=== PATIENT | female | born 1965 | race Caucasian/White ===

== ENCOUNTER → 2017-10-25 10:46 | Outpatient (CLI) | payer OTHER, SELFPAY ==
[2017-10-25 12:18] LABS: Anion Gap 10 (5-15); BUN 12 mg/dL (7-18); BUN/Creat Ratio 14.1 RATIO (10-20); Calcium,Total 8.7 mg/dL (8.5-10.1); Chloride 101 mmol/L (98-107); Creatinine, Serum 0.85 mg/dL (0.55-1.02); EST Glomerular Filtration Rate 75 mL/min (>60); Est Glom Filt Rate - Afr Amer 91 mL/min (>60); Glucose 88 mg/dL (74-106); Potassium 3.1 mmol/L (3.5-5.1); Sodium Level 136 mmol/L (136-145)
== END ==
PROVIDERS: Family Provider Family Medicine; PCP Family Medicine; Visit Provider Family Medicine
DX: I10 Essential (primary) hypertension (principal)
CPT/HCPCS: 36415; 80048

== ENCOUNTER → 2019-06-20 14:17 | Outpatient (CLI) | payer OTHER, SELFPAY ==
[2019-06-20 15:42] LABS: Absolute Lymphocyte Count 1.81 X10^3/uL (0.83-4.51); Absolute Neutrophil Count 5.4 X10^3/uL (2.0-7.7); Basophil# 0.02 X10^3/uL; Basophil% 0.2 % (0-1); Eosinophil# 0.11 X10^3/uL; Eosinophils% 1.4 % (0-5); Hemoglobin 13.2 g/dL (12.0-15.0); Lymphocyte # 1.81 X10^3/ul (4.0); Lymphocyte % 22.5 % (19-41); Mean Corpuscular Hgb 30.9 pg (27.0-32.0); Mean Corpuscular Volume 93.7 fL (81-99); Mean Platelet Vol. 10.7 fl (6.2-12.0); Monocyte# 0.62 X10^3/uL; Monocyte% 7.7 % (0-10); NRBC Flagged by Analyzer 0 % (0-5); Neutrophil # 5.44 X10^3/uL (2.7-7.7); Neutrophil % 67.8 % (47-70); Platelet Count 328 K/mm3 (150-450); RBC Distribution Width CV 12.2 % (11.6-14.6); RBC Distribution Width SD 42.2 fl (35.1-43.9); Red Blood Count 4.27 M/mm3 (4.2-5.4)
[2019-06-20 16:07] LABS: ALB/GLOB Ratio 0.8 RATIO (0.9-2.4); AST(SGOT) 19 U/L (15-37); Alanine Aminotransfer ALT/SGPT 26 U/L (13-56); Albumin, Serum 3.7 g/dL (3.2-5.0); Alkaline Phosphatase 95 U/L (45-117); Anion Gap 8 (5-15); BUN 9 mg/dL (7-18); BUN/Creat Ratio 9.2 RATIO (10-20); Calcium,Total 8.8 mg/dL (8.5-10.1); Chloride 103 mmol/L (98-107); Creatinine, Serum 0.98 mg/dL (0.55-1.02); EST Glomerular Filtration Rate 63 mL/min (>60); Est Glom Filt Rate - Afr Amer 76 mL/min (>60); Globulin 4.9 g/dL (2.2-4.2); Glucose 96 mg/dL (74-106); Lipase 120 U/L (73-393); Potassium 3.7 mmol/L (3.5-5.1); Protein, Total 8.6 g/dL (6.4-8.2); Sodium Level 138 mmol/L (136-145); Thyroid Stim Hormone (TSH) 2.83 uIU/mL (0.358-3.74)
--- NOTE | 2019-06-20 16:34 | US_ITS ---
STUDY: ABDOMINAL ULTRASOUND - RIGHT UPPER QUADRANT REASON FOR VISIT: Female, 54 years old. Pain TECHNIQUE: Ultrasound evaluation of the right upper quadrant was performed with real-time and static azar-scale imaging. TECHNICAL QUALITY: Adequate. COMPARISON: None. FINDINGS: Liver: The liver measures 18 cm. There is normal echogenicity of the liver. The bile ducts are within normal limits. There is hepatic color flow. The direction of portal flow is hepatopetal. There is no demonstrated mass lesion. Gallbladder: Normal distended gallbladder. The gallbladder wall measures 4 mm. There is a negative sonographic Hooker's sign. There is no pericholecystic fluid. Gallstones and sludge are present. Common Bile Duct (C.B.D.): The common bile duct measures 4 mm. Pancreas: Normal size of the head, body and tail of the pancreas. There is normal echogenicity of the pancreas. There is no demonstrated pancreatic mass or cyst. Right Kidney: Normal size of the right kidney. The right kidney measures 10 cm. Normal renal cortex. There is no demonstrated renal mass or cyst. There is no right hydronephrosis. US/Abdomen Limited IMPRESSION: No acute abdominal pathology identified. Hepatomegaly. Gallstones and sludge. Electronically Signed: Ariel Hammond, at 17:19 EDT Tel , Service support ,
== END ==
PROVIDERS: Family Provider Family Medicine; PCP Family Medicine; Referring Provider Family Medicine; Visit Provider Family Medicine
DX: R10.11 Right upper quadrant pain (principal)
CPT/HCPCS: 36415; 76705; 80053; 83690; 84443; 85025; 86140

== ENCOUNTER 2019-07-04 08:51 | Day surgery (SDC) | payer OTHER, SELFPAY ==
[2019-06-25 15:23] VITALS: BMI 39.1
--- NOTE | 2019-06-26 12:33 | HP_ITS ---
Intake Vital Signs 06/25/19 Height 5 ft 1 in 06/25/19 Weight: 207 lb 06/25/19 Body Mass Index (BMI) 39.1 06/25/19 Blood Pressure 147/82 H 06/25/19 Blood Pressure Location Rt brachial 06/25/19 Blood Pressure Position Sitting 06/25/19 Respiratory Rate 16 06/25/19 Pulse Rate 95 06/25/19 Pulse Source Monitor 06/25/19 Temperature 98.5 F 06/25/19 Temperature Source Oral 06/25/19 Pulse Ox 95 06/25/19 Oxygen Delivery Method room air Intake Visit Reasons: CHOLELITHIASIS & SLUDGE, U/S @ [facility] 06/20/2019 High Tension Tester Required: No Is patient in pain?: Yes (RUQ abdomen) Pain scale (1-10): 5 Allergies No Known Allergies Allergy (Verified 06/25/19 15:27) Medications lisinopril 20 mg-hydrochlorothiazide 12.5 mg tablet 1 tab PO DAILY #90 tab 06/25/19 [History Confirmed 06/25/19] PFSH Medical History (Updated 06/25/19 @ 15:19 by Rosanne Montague) Acid reflux (Acute) Diarrhea (Acute) Nausea (Acute) Hypertension (Chronic) Abdominal pain, RUQ (Acute) Fatigue (Acute) Surgical History (Updated 06/25/19 @ 15:19 by Rosanne Montague) Hx of tonsillectomy (Acute) History of (Acute) Hx of dilation and curettage (Acute) Family History (Updated 06/25/19 @ 15:23 by Rosanne Montague) Father Heart disease Hypertension Cancer Skin Mother Cancer Skin Cancer Sister Hypertension Brother Hypertension Social History (Updated 06/26/19 @ 12:33 by Meg Badillo MD) Smoking Status: Never smoker second hand exposure: No alcohol intake: current alcohol intake frequency: a few times a month substance use type: does not use caffeine: Yes what type of physical activity do you participate in: none frequency: does not exercise HPI HPI HPI: ISADORA BAHENA, is a 54 F who presents to the office today for HPI HPI Surgical H&P: Yes HPI: ISADORA BAHENA, is a 54 F who presents to the office today for cholelithiasis. Patient states for the past few months she has had pain after eating but it has gradually gotten worse. Patient states that currently she is avoiding any fatty or greasy foods and the pain is much better. Before that patient states she could have right upper quadrant pain, went towards the back and rated as 7?8/10. Patient did have an ultrasound which showed gallstones, no pericholecystic fluid, normal common bile duct, gallbladder wall measured about 3 mm on my read, white blood cell count and LFTs were within normal limits. Patient states she occasionally had some nausea with it occasionally some diarrhea as well. Patient has never had a colonoscopy. Denies any family history of colon cancer. ROS General General: Yes weight change and fatigue Gastro Gastrointestinal: Yes abdominal pain, No nausea or vomiting, No diarrhea, No constipation, No blood in stool, No acid reflux, No hemorrhoids, No ulcers, No gallbladder problem, No black,tarry stools Exam Const General: cooperative, comfortable, no acute distress Resp Effort & Inspection: normal respiratory effort Cardio Rate: regular rate GI Inspection: non-distended Palpation: soft, no guarding, nontender Assessment & Plan Problems 1. Cholelithiasis K80.20 Plan Reviewed the anatomy with the patient and discussed the procedure: laparoscopic cholecystectomy with possible cholangiograms, possible open. Review risks including but not limited to bleeding, infection, hernia, bile leak, retained gallstones requiring another procedure ERCP- Endoscopic Retrograde Cholangiopancreatography, injury to another organ (bile ducts, common bile duct, small bowel, etc.) may require transfer to tertiary care facility and conversion to an open procedure. All questions were answered. Meg Badillo M.D. Pager: [phone] [facility] [address] [place] [address], [address] [place] [address] Office: [phone] Plan Detail Follow Up will schedule lap mare Coding Level of Care Code Off vis,new,level 3 Diagnoses Cholelithiasis K80.20 06/26/19 1233 <Electronically signed by Meg Knight am, MD> Date _ Meg Badillo MD I have examined the patient the following changes are noted: Patient states she is still been doing pretty well she has occasional discomfort which she rates still a 4?5/10. She has been avoiding fatty or greasy foods. Patient and her no further questions about the procedure.
[2019-07-04] VITALS (8 sets, daily range): BP systolic 148–181; BP diastolic 64–107; PULSE 16–98; RESP 16; TEMP 36.1–36.8; O2SAT 98–100; BMI 38.3
--- NOTE | 2019-07-04 09:12 | EKG12_ITS ---
Test Reason : PRE OP Blood Pressure : / mmHG Vent. Rate : 084 BPM Atrial Rate : 084 BPM P-R Int : 154 ms QRS Dur : 080 ms QT Int : 366 ms P-R-T Axes : 071 016 060 degrees QTc Int : 432 ms Normal sinus rhythm Low voltage QRS Borderline ECG No previous ECGs available Confirmed by HEATHER CHIRINOS, GOMEZ ([id number]), publication editor BRIDGER ANTONIO ([id number]) on 07/10/2019 1:47:37 PM Referred By: Meg Badillo Confirmed By:KHOI ROMERO MD
[2019-07-04] MEDS: Lactated Ringers 1,000 ML 100 ML IV (09:59)
--- NOTE | 2019-07-04 10:30 | GALL_PTH ---
PATIENT: ISADORA BAHENA LOC: [facility] U#:[id number] AGE/SX: 54/F ROOM: RE07/04/[address]: Dr. Meg Badillo MD : [id number] BED: DIS: 07/04/2019 SPEC #: [id number] RECD: 07/04/19 15:22 STATUS: TIFFANY RETiffanie #: [id number] CHAS: 07/04/19 10:[address]: Meg Badillo DEPT: SURGICAL PATHOLOGY RECD BY: Paolo Douglass ENTERED: 07/05/19 09:58 SP TYPE: PHUONG MARTINEZ DR: Dr. Lou Puente MD Tissues: Gallbladder, NOS Procedures: Surgery Specimen Level III HEADER OPERATION: Laparoscopic, cholecystectomy with IOC PRE-OP DIAGNOSIS: Cholelithiasis and sludge TISSUE SUBMITTED: Gallbladder MICROSCOPIC DIAGNOSIS Gallbladder, cholecystectomy: Chronic cholecystitis and cholelithiasis. AM:silver 07/06/19 MICROSCOPIC DESCRIPTION Slides are reviewed. GROSS DESCRIPTION Received is one container labeled with the patient's name and designated gallbladder. The specimen consists of a previously opened gallbladder measuring 12 cm in length and up to 5 cm in diameter. The external surface is pink-reyes, smooth and glistening for the most part. Focally it is granular, hemorrhagic and contains cautery artifact. Present in the container is a significant amount of bile. Present in the container are five multifaceted, brownish-black stones measuring in aggregate 5.5 x 2.5 x 2.5 cm and 1 to 2.5 cm in greatest dimension. The mucosa is bile-stained and without any mass lesions. The gallbladder wall measures up to 0.3 cm in thickness. Equipment Manager sections from the gallbladder and the cystic duct are submitted in one cassette. / SHERICE:silver 07/05/19 TC:3 CPT: 64599
--- NOTE | 2019-07-04 11:01 | RAD_ITS ---
STUDY: INTRAOPERATIVE CHOLANGIOGRAM. REASON FOR EXAM: Female, 54 years old. Laparoscopic cholecystectomy. FLUOROSCOPY TIME (if supplied): ( 26.7 seconds ) minutes/seconds. 5 intraoperative images were obtained. TECHNIQUE: An intraoperative cholangiogram was performed by the surgeon. Imaging was submitted. COMPARISON: None. FINDINGS: The visualized intrahepatic biliary ducts are unremarkable. The common bile duct is unremarkable. No intraluminal filling defect is seen. There is free flow of contrast into the duodenum. RAD/Cholangiogram/ O R,Initial IMPRESSION: Unremarkable intraoperative cholangiogram. Electronically Signed: Ronaldo Lewis, at 10:09 EST , Service support ,
--- NOTE | 2019-07-04 12:22 | PCM.OPRPT ---
Report of Operation Date of Procedure: 07/04/19 Pre-Operative Diagnosis: Cholelithiasis, cholecystitis Post-Operative Diagnosis: Same Surgery/Procedure Performed:: Laparoscopic cholecystectomy with cholangiograms home improvement advisor: Kelly Huynh Type of Anesthesia:: General/Supplemental Anesthesiologist: Kevin Boland Special Medications: Cefotan 2 g IV x1 Specimen's removed: Gallbladder and stones Estimated Blood Loss (mL): 20 cc Fluids Replaced: 1200 cc Description of Procedure: Indications this is a 54 year-old female who developed abdominal pain/nausea/vomiting and on workup was found to have cholelithiasis, with a normal common bile duct and normal LFTs. Laparoscopic cholecystectomy was elected. Description procedure: The patient was placed on operating table in supine position. General Anesthesia was induced. A timeout was completed verifying correct patient, procedure, site, position and special equipment prior to beginning procedure. The abdomen was prepped and draped in usual sterile fashion. An incision was made in the natural skin line above the umbilicus. The fascia was elevated and incised. The peritoneum was elevated and incised. Entry into the peritoneum was confirmed visually and no bowel was noted in the vicinity of the incision. Louis trocar was placed. The abdomen was insufflated with carbon dioxide to a pressure of 12-15 mmHg. Patient tolerated insufflation well. The laparoscope was then inserted and abdomen inspected. No injuries from initial trocar placement were noted. Additional trochars were then inserted in the following locations 5 mm trocar in the epigastrium and 2 more 5 mm trochars along the right costal margin. The abdomen was inspected no abnormalities were found. The table is placed in reverse Trendelenburg position with the right side up. The adhesions between the gallbladder and omentum were lysed sharply. The gallbladder was distended. An aspiration needle was used. The dome of the gallbladder was grasped with atraumatic grasper passed through the lateral port and retracted over the dome of the liver. Infundibulum was then grasped with atraumatic grasper through the midclavicular port and retracted to the right lower quadrant. This maneuver exposed Calot's triangle. The peritoneum overlying the gallbladder infundibulum was then incised and cystic duct and artery identified and circumferentially dissected. Corona catheter was used for cholangiograms. The cholangiogram showed good filling of the common bile duct into the duodenum with no filling defects, good filling of the right and left bile ducts as well. The cystic duct and artery were then doubly clipped and divided close to the gallbladder. The gallbladder then dissected from the gallbladder fossa by electrocautery. Hemostasis was checked and the argon beam was used on the gallbladder fossa. The gallbladder and contained stones were removed using the endoscopic retrieval bag through the umbilical port which need to be enlarged due to the size of the stones. The gallbladder is passed off table as specimen. The gallbladder fossa was copiously irrigated with saline and hemostasis obtained. There is no evidence of bleeding from the gallbladder fossa or cystic artery leakage of bile from the cystic duct stump. Secondary trochars removed under direct vision. No bleeding was noted the trocar sites. The laparoscope was withdrawn and umbilical trocar removed. The abdomen was allowed to collapse. The fascia of the 12 mm trocar was closed with 2 [id number] 0 Vicryl suture. The skin was closed with sutures of 4-0 Monocryl and Steri-Strips. The orogastric tube was removed and the patient was extubated. The patient tolerated procedure well and was taken to the postanesthesia care unit in stable condition. - Complications None
--- NOTE | 2019-07-04 12:25 | PCM.DC.GB ---
Discharge Diet: Light diet - advance as tolerated Discharge Activity: May not drive while taking narcotic pain medications. May shower in (days): 1 Lifting Restrictions: No lifting greater than 20 pounds x 3 weeks, no strenuous exercise for 5 wk Call your doctor if your incision/area has: Continuous Slow Oozing, Sudden Increased Bleeding, Increased Pain/ Swelling, Increased Redness, Foul Smelling Discharge, Swelling at the incision site Call your doctor if you observe: Fever of 101 or Higher Remove Dressing in (days):: 1 - Okay to remove op sites tomorrow, keep Steri-Strips on until they follow-up, if they do not follow-up in 10 days okay to remove Additional Instructions: Okay to take ibuprofen 400-600 mg PO q6hr PRN along with the Percocet. Avoid Tylenol since there is already Tylenol in the Percocet. Take all pain meds with food. Percocet can cause constipation recommend taking daily stool softener (i.e. Colace/docusate) while taking the pain meds. Recommend starting some MiraLAX in 1 to 2 days if no bowel movement. If still no bowel movement following day recommend taking magnesium citrate half the bottle and waiting 4-6 hours if still no results take the other half the bottle. Allergies/Adverse Reactions: Allergies No Known Allergies Allergy (Verified 07/04/19 09:36) Medications to take at Discharge lisinopril 20 mg-hydrochlorothiazide 12.5 mg tablet 1 tab PO DAILY #90 tab 06/25/19 Oxycodone HCl/Acetaminophen [Percocet 5/325] 1 - 2 tab PO Q6H PRN PRN 4 Days #20 tab 07/04/19 The following prescriptions were given: Oxycodone HCl/Acetaminophen [Percocet 5/325] 1 - 2 tab PO Q6H PRN PRN 4 Days #20 tab PRN Reason: Pain Transmission Status: Received by Dotted Block #30 Primary Care Physician: Lou Puente MD [Primary Care Provider] - Test Results: Test results from this visit will be discussed in further detail at your follow-up appointment, if applicable. Please Follow Up With: Meg Badillo MD - After 5 PM and on the weekends call [phone] When: Call the office for follow-up appointment in 2 weeks. Proposed Discharge Date: 07/04/19
[2019-07-04] MEDS: Bupivacaine Mpf 0.5% 30 ML VIAL (12:27)
== END 2019-07-04 16:31 | disposition home or self-care (01) ==
LOC: SDC 08:53 → AC 08:53
PROVIDERS: Family Provider Family Medicine; PCP Family Medicine; Referring Provider Surgery; Visit Provider Surgery
PROC: (CPT 47610; principal; 2019-07-04 10:10)
DX: K80.10 Calculus of gallbladder with chronic cholecystitis without obstruction (principal); I10 Essential (primary) hypertension; K21.9 Gastro-esophageal reflux disease without esophagitis; Z78.0 Asymptomatic menopausal state; Z79.899 Other long term (current) drug therapy
CPT/HCPCS: 00790; 47563; 74300; 76000; 88304; 93005; J7120; J2405

== ENCOUNTER → 2020-04-07 | Outpatient (CLI) | payer BC, SELFPAY ==
[2019-07-04 09:50] VITALS: BMI 38.3
[2020-04-07 15:59] LABS: Anion Gap 10 (5-15); BUN 16 mg/dL (7-18); BUN/Creat Ratio 16.6 RATIO (10-20); Calcium,Total 8.7 mg/dL (8.5-10.1); Chloride 103 mmol/L (98-107); Cholesterol 189 mg/dL (200); Creatinine, Serum 0.96 mg/dL (0.55-1.02); EST Glomerular Filtration Rate 64 mL/min (>60); Est Glom Filt Rate - Afr Amer 78 mL/min (>60); Glucose 86 mg/dL (74-106); High Density Lipoprotein 50 mg/dL; Potassium 3.7 mmol/L (3.5-5.1); Sodium Level 139 mmol/L (136-145); Triglycerides 148 mg/dL; Very Low Density Lipoprotein 30 mg/dL (5-40)
== END | disposition home or self-care (01) ==
LOC: MFPLAB 11:33
PROVIDERS: PCP Family Medicine; Referring Provider Family Medicine; Visit Provider Family Medicine
DX: I10 Essential (primary) hypertension (principal)
CPT/HCPCS: 36415; 80048; 80061

== ENCOUNTER → 2021-06-09 10:24 | Outpatient (CLI) | payer BC, SELFPAY ==
[2021-06-09 13:34] LABS: Anion Gap 8 (5-15); BUN 17 mg/dL (7-18); BUN/Creat Ratio 16.3 RATIO (10-20); Calcium,Total 8.8 mg/dL (8.5-10.1); Chloride 103 mmol/L (98-107); Cholesterol 174 mg/dL (200); Creatinine, Serum 1.04 mg/dL (0.55-1.02); EST Glomerular Filtration Rate 59 mL/min (>60); Est Glom Filt Rate - Afr Amer 71 mL/min (>60); Glucose 99 mg/dL (74-106); High Density Lipoprotein 49 mg/dL; Potassium 3.7 mmol/L (3.5-5.1); Sodium Level 138 mmol/L (136-145); Triglycerides 196 mg/dL; Very Low Density Lipoprotein 39 mg/dL (5-40)
== END ==
PROVIDERS: PCP Family Medicine; Referring Provider Family Medicine; Visit Provider Family Medicine
DX: Z00.00 Encounter for general adult medical examination without abnormal findings (principal); I10 Essential (primary) hypertension
CPT/HCPCS: 36415; 80048; 80061

== ENCOUNTER → 2023-01-26 | Outpatient (CLI) | payer BC, SELFPAY ==
--- NOTE | 2023-01-26 07:59 | BI_ITS ---
MAMMOGRAPHY - BILATERAL SCREENING REASON FOR EXAM: Female, 57 years old. Routine annual screening examination. PERTINENT HISTORY: Non-contributory. TECHNIQUE: Digital bilateral breast sarjbit (3D mammographic acquisition) in the CC and MLO projections. 2-D mediolateral oblique (MLO) and craniocaudad (CC) views of both breasts were obtained. CAD: Full Field Digital Mammography with Computer Added Detection was performed. COMPARISON: Comparison is made with prior study dated May 06, 2015. FINDINGS: Breast Composition: The breasts are heterogeneously dense, which may obscure small masses. There are no dominant masses or suspicious calcifications. No other significant abnormalities are identified. There has been no significant change since the prior study. BI/SCRN MAMM (CAD)W/SARBJIT BILAT IMPRESSION: Stable bilateral screening mammogram. Yearly follow-up mammogram recommended. (A) ASSESSMENT CATEGORY: BIRADS Category 1: Negative. A letter regarding these results will be sent to the patient by the facility within 30 days. Approximately 10% of breast cancers are not detected by mammography. A normal mammogram should not delay biopsy of a clinically suspicious abnormality. [id number] Electronically Signed: Ronaldo Lewis MD at 9:35 EDT ,
== END | disposition home or self-care (01) ==
LOC: OPBI 07:57
PROVIDERS: PCP Family Medicine; Referring Provider Family Medicine; Visit Provider Family Medicine
DX: Z12.31 Encounter for screening mammogram for malignant neoplasm of breast (principal)
CPT/HCPCS: 77063; 77067

== ENCOUNTER → 2025-05-14 | Outpatient (CLI) | payer OTHER, SELFPAY ==
--- NOTE | 2025-05-14 15:18 | BI_ITS ---
EXAM: SCRN MAMM (CAD)W/SARBJIT BILAT DATE: 05/14/2025 CLINICAL HISTORY: F, Age 60 y/o , SCREENING No family history. TECHNIQUE: Procedure Code: [id number] Modality: MG Procedure: SCRN MAMM (CAD)W/SARBJIT BILAT COMPARISON: Prior exam(s) dated January 26, 2023.. FINDINGS: TISSUE DENSITY: The breasts are heterogeneously dense, which may obscure small masses. Bilateral Breast Mammographic Findings: No significant masses, calcifications or other abnormalities are identified. Stable bilateral benign-appearing axillary lymph nodes. No suspicious masses, areas of developing architectural distortion, or suspicious calcifications. There has been no significant interval change. BI/SCRN MAMM (CAD)W/SARBJIT BILAT IMPRESSION: Stable bilateral screening mammogram. OVERALL FINAL ASSESSMENT BI-RADS 2: BENIGN RECOMMENDATION: Routine annual follow-up in 1 Year Additional Recommendation none A letter with findings and recommendations will be mailed to the patient. Reading Location: [place] [address]
== END | disposition home or self-care (01) ==
PROVIDERS: PCP Family Medicine; Referring Provider Family Medicine; Visit Provider Family Medicine
DX: Z12.31 Encounter for screening mammogram for malignant neoplasm of breast (principal)
CPT/HCPCS: 77063; 77067